=== PATIENT | female | born 1955 | race Caucasian/White ===

== ENCOUNTER → 2024-04-07 13:53 | Outpatient (REF) | payer MEDICARE, MEDICAID, SELFPAY ==
--- NOTE | 2024-04-07 14:00 | CA_ITS ---
Transthoracic Echocardiogram Patient (Last, First, Middle): Candelario Remy, Gender: Female Date of : 1955 Age: 68 Procedure Date: 04/07/2024 Procedure Type: Transthoracic Echocardiogram Location: OP Height: 162.56 cm Weight: 81.99 kg BSA: 1.87 m2 Heart Rate: 73 bpm BP: 138 / 70 mmHg Weight Clerk: CLARE Khan MD: Maribell PAVON Parking Lot Attendant: Richard Reid MD Symptoms: ATYPICAL CHEST PAIN, Study Quality: Adequate ECG Rhythm: Sinus, occasional arrhythmia Conclusions: - 1. Normal LV ejection fraction of 60-65% with grade 1 diastolic dysfunction 2. Cardiac valvular Dopplers within normal limits 3. Normal RV systolic pressure 4. No gross pericardial effusion Findings Left Ventricle Normal left ventricular size, thickness, and systolic function. The visually estimated ejection fraction is between 60-65%. Spectral Doppler is indicative of an impaired relaxation filling pattern. E/E prime ratio is <8, consistent with normal filling pressures. Right Ventricle Normal right ventricular cavity size and systolic function. Atria The left atrium is likely dilated. There is lipomatous hypertrophy of the interatrial septum. There is no evidence of interatrial shunt. The right atrium is normal in size. Aortic Valve Normal aortic valve structure and function. There is no aortic valve stenosis. There is no aortic valve regurgitation. Mitral Valve There is mild anterior and posterior mitral leaflet thickening. There is trace mitral valve regurgitation. There is no mitral valve stenosis. Pulmonic Valve The pulmonic valve was not well visualized. Tricuspid Valve Likely normal tricuspid valve structure and function. There is trace tricuspid valve regurgitation. The right ventricular systolic pressure is normal. The right ventricular systolic pressure is 22 mmHg. Normal right atrial pressure. There is no evidence of pulmonary hypertension. Great Vessels All visible segments of the aorta are normal in size. The pulmonary artery was not well visualized. There is no dilatation of the ascending aorta measuring 3.00 cm. Venous The inferior vena cava is normal in size and collapses greater than 50% with inspiration. Pericardium/Pleural There is no evidence of pericardial effusion. Prior Study Comparison No prior study available for comparison. Measurements 2D Linear Measurements IVSd: 1.02 0.6-0.9/0.6-1.0 cm LVIDd: 4.45 3.9-5.3/4.2-5.9 cm LVIDd Index: 2.38 2.4-3.2/2.2-3.1 cm/m2 LVIDs: 2.66 2.0-3.6 cm LVPWd: 0.99 0.7-1.1 cm LA Diam: 4.10 2.7-3.8/3.0-4.0 cm LAIDs Index: 2.19 1.5-2.3 cm/m2 LV Mass: 188.85 67-162/88-224 g LV Mass Index: 100.99 43-95/49-115 g/m2 LVOT Diam: 2.00 3.0+(-)1.3 cm 2D Systolic Function EF 4C: 61.50 >55% EF 2C: 62.20 >55% EF BiP: 61.10 >55% Mitral Valve MV Pk E: 0.77 MV PK A: 1.00 MV Decel Time: 199.00 E/A: 0.80 E'Lateral: 8.81 E'Medial: 7.18 E/E' Med: 10.70 E/E' Lat: 8.80 PHT: 58.00 MVA PHT: 3.79 Decel Dixie: 3.87 Aortic Valve AoV Pk Kb: 1.18 AoV Mn Kb: 0.84 AoV VTI: 0.28 AoV Pk Grad: 6.00 Aov Mn Grad: 3.00 ANGEL Cont.VTI: 2.42 LVOT LVOT Pk Kb: 1.00 LVOT Mn Kb: 0.63 LVOT VTI: 0.22 LVOT Pk Grad: 4.00 LVOT Mn Grad: 2.00 LVOT Diam: 2.00 LVOT Area: 3.14 Diastolic Function MV Pk E: 0.77 MV Pk A: 1.00 E/A: 0.80 E'Medial: 7.18 E/E' Med: 10.70 E' Laterial: 8.81 E/E' Lat: 8.80 Right Ventricle TAPSE (mm): 30.00 TVS' Kb: 15.30 Tricuspid Valve TR Pk Kb: 2.16 TR Pk Grad: 19.00 RA Press: 3.00 RVSP: 22.00 Great Vessels Aorta Sinus of Valsalva: 3.20 2.0-3.5 cm Ao Asc: 3.00 2.1-3.4 cm Ao Arch: 3.00 Pulmonary Valve PV Pk Kb: 0.92 Peak PV Grad: 3.00 Updated in Other Vendor System with Status of Final Richard Reid MD electronically signed on 04/08/2024 1:26:51 PM with status of Final
== END ==
LOC: HO.CARD 13:53
PROVIDERS: PCP Physician Assistant; Visit Provider Physician Assistant
DX: R07.89 Other chest pain (principal)
CPT/HCPCS: 93306

== ENCOUNTER → 2024-04-07 14:00 | Outpatient (BNV) | payer MEDICARE, MEDICAID, SELFPAY | PROVIDERS: PCP Physician Assistant; Visit Provider Internal Medicine Cardiovascular Disease | DX: I51.89 Other ill-defined heart diseases (principal); R07.9 Chest pain, unspecified | CPT/HCPCS: 93306 ==

== ENCOUNTER 2024-12-17 12:24 | Emergency (ER) | payer MEDICARE, MEDICAID, SELFPAY ==
[2024-12-17] VITALS (7 sets, daily range): BP systolic 142–187; BP diastolic 61–79; PULSE 59–71; RESP 16–18; TEMP 36.3–36.8; O2SAT 95–98; BMI 28.7
--- NOTE | ~2024-12-17 | US_ITS ---
CLINICAL HISTORY: leg pain Venous duplex ultrasound left lower extremity Comparison: None provided Findings: The visualized deep veins are fully compressible with normal Doppler color flow and spectral tracings. Superficial and varicose veins also present. IMPRESSION: 1. Negative for left lower extremity deep vein thrombosis. This document has been electronically signed by: Eladio Slaughter MD on 12/17/2024 19:05:09
--- NOTE | ~2024-12-17 | CT_ITS ---
EXAMINATION: CT HEAD WITHOUT CONTRAST CLINICAL INFORMATION: Hypertension and headache. COMPARISON: None available. TECHNIQUE: Contiguous axial imaging was performed from the skull base to vertex without intravenous administration of contrast. This CT examination was performed using dose optimization techniques as appropriate, variously including the following: *Automated exposure control *Adjustment of mA and/or kV according to patient size (this includes techniques or standardized protocols for targeted exams where dose is matched to indication/reason for exam; i.e. extremities or head) *Use of iterative reconstruction technique FINDINGS: There is no evidence of intracranial hemorrhage or extra-axial fluid collection. There is no mass effect, or edema. No CT evidence of acute territorial infarct. Ventricles, sulci, and cisterns are normal in size and configuration for patient age. No hydrocephalus. No midline shift. 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 Negative hyperdense MCA sign. Negative insular ribbon sign. No significant white matter attenuation abnormalities. Normal pituitary. Mild atheromatous calcification of the bilateral carotid siphons. There is ossification of the anterior falx in the midline. Globes and orbital contents image normally. No extracranial soft tissue abnormalities. The paranasal sinuses, mastoid air cells, and tympanic cavities are normally aerated. No suspicious bony abnormalities. There are no acute fractures evident. CT/CT head/brain wo IV con IMPRESSION: No acute intracranial abnormality. Electronically signed by: Reyes Crane MD 12/17/2024 01:21 PM EDT
--- NOTE | 2024-12-17 12:42 | ECG_ITS ---
Test Reason : HEADACHE/HTN Blood Pressure : */* mmHG Vent. Rate : 66 BPM Atrial Rate : 66 BPM P-R Int : 162 ms QRS Dur : 98 ms QT Int : 446 ms P-R-T Axes : 54 15 24 degrees QTcB Int : 467 ms Normal sinus rhythm with sinus arrhythmia Normal ECG No previous ECGs available Referred By: Nathan Roberts Electronically Signed By: LUIZ NUR
--- NOTE | 2024-12-17 12:43 | ED_ITS ---
HPI - General Adult General Chief complaint: Headache Stated complaint: High BP, headache Time Seen by Provider: 12/17/24 15:59 History of Present Illness HPI narrative: Patient is a 69-year-old female presents today with having headaches. The headache is frontal it has been ongoing since yesterday. Patient has a history of hypertension normally takes lisinopril. However she takes her lisinopril as needed some day she takes it is Saturday she does not. She checks home blood pressure if it is high she will take her medicine. In addition patient took her blood pressure today at home was 180/117. Patient elected to take her lisinopril also took her 's metoprolol. Continued to have the headache and then decided come to the ED. there is no focal deficit there is no change in vision. There is no focal weakness. Patient is from home. There is no fever no chills. There is no sudden deaths in her family. Related Data Allergies Allergy/AdvReac Type Severity Reaction Status Date / Time No Known Allergies Allergy Verified 12/17/24 12:41 Review of Systems 2 Review of Systems: Positive headache Yes all other systems are reviewed and are negative [facility] Past Medical History Attestation statement: The following information was validated with the patient. Social History Social History Smoked in Last 30 Days: No Use of substances other than those prescribed or required for medical reasons: No Advance Directives: No Advance Directives Information Provided: Yes Physical Exam ED Exam Exam: Appearance: Alert. Oriented X3. No acute distress. Eyes: Pupils equal, round and reactive to light. ENT: Pharynx normal. Neck: Normal inspection. Neck supple. No lymph nodes noted. No crepitus CVS: Normal heart rate and rhythm. Pulses normal. Normal S1 and S2 Respiratory: No respiratory distress. Breath sounds normal. No Wheezing. No rales Abdomen: Soft and nontender. No rigidity. No distention. good BS x4 Skin: Skin warm and dry. Normal skin color. Normal skin turgor. Extremities: No lower extremity edema. Neurovascular intact to all extremities. No Lacerations. No Rash Neuro: Oriented X 3. No motor deficit. No sensory deficit. Moving all extermities. No slurred speech Vital Signs: Vital Signs - 24 hr 12/17/24 12:37 12/17/24 14:30 12/17/24 17:03 Temperature 97.6 F 97.8 F 97.3 F Pulse Rate 71 67 59 Respiratory Rate 18 16 17 Blood Pressure 187/78 H 162/71 H 143/64 H Pulse Oximetry 98 95 97 Oxygen Delivery Method Room Air Room Air 12/17/24 18:14 12/17/24 20:09 12/17/24 20:34 Temperature 97.8 F 98.3 F 98.3 F Pulse Rate 67 67 67 Respiratory Rate 16 16 16 Blood Pressure 142/61 H 151/79 H 151/79 H Pulse Oximetry 98 96 96 Oxygen Delivery Method Room Air Room Air Room Air 12/17/24 20:41 Temperature 97.6 F Pulse Rate 63 Respiratory Rate 16 Blood Pressure 150/77 H Pulse Oximetry 95 Oxygen Delivery Method Room Air BMI result Body Mass Index 28.7 Course Course Course Narrative: RME: 69-year-old female history of high blood pressure presents to ED for hypertension with headache since last night. Patient denies any slurred speech, facial droop or paralysis of extremities. Labs EKG head CT scan ordered. Medications Administered Discontinued Medications Generic Name Dose Route Start Last Admin Trade Name Freq PRN Reason Stop Dose Admin Diphenhydramine HCl 25 mg 12/17/24 17:46 12/17/24 19:13 Diphenhydramine Hcl 50 Mg/Ml Vial IVPUSH 12/17/24 17:47 25 mg ONCE ONE Administration Ketorolac Tromethamine 15 mg 12/17/24 17:46 12/17/24 19:13 Ketorolac Tromethamine 15 Mg/Ml Vial IVPUSH 12/17/24 17:47 15 mg ONCE ONE Administration Metoclopramide HCl 10 mg 12/17/24 17:46 12/17/24 19:13 Metoclopramide Hcl 10 Mg/2 Ml Vial IVPUSH 12/17/24 17:47 10 mg ONCE ONE Administration Medical Decision Making Medical Decision Making MDM Narrative: Patient neurologically intact. I checked patient's intra-ocular pressure on the right side was 14.9 on the left side was 15. There is no signs of glaucoma. Patient's vision grossly was intact. On recheck the patient's blood pressure was about 170/90. No acute distress. My interpretation patient's CT head was grossly negative. Patient has no evidence of bleeding. Electrolytes are normal. We elected to order a CRP and sed rate to rule out the possibility of temporal arteritis. Currently in no distress. Elected to give patient migraine cocktail. Will monitor carefully. Sinus heart rate is 70 TN QRS QTC within normal limits is no acute ST segment elevation Patient's sed rate and CRP are negative. No evidence for temporal arteritis. CT scan of the head was grossly negative for bleed. History not consistent with meningitis. Had an elevated blood pressure at home of 180/117 but in the emergency department blood pressure has been fairly normal it was 130/70 in the last checked. Patient in no distress neurologically intact. No signs of a stroke no signs of a bleed. History not consistent with meningitis. Will discharge patient home. Close follow-up advised. Blood pressure recheck in 24- 48 hours. Headache improved with migraine treatment. Differential Diagnosis Differential Diagnoses: The differential diagnosis associated with the presentation includes Admission/Observation Consideration of admission/observation: Escalation of care including admission/observation considered Lab Data MDM Lab Attestation statement: I reviewed the patient's lab results. 12/17/24 13:04 12/17/24 13:04 Labs: Lab Results 12/17/24 Range/Units 13:04 WBC 5.1 (4.8-10.8) X10*3/uL RBC 4.85 (4.20-5.50) X10*6/uL Hgb 13.2 (12.0-16.0) g/dl Hct 38.1 (37.0-47.0) % MCV 78.6 L (80.0-98.0) fL MCH 27.2 (27.0-33.0) pg MCHC 34.6 (31.0-35.0) g/dl RDW 13.8 (11.0-16.0) % Plt Count 205 (160-400) X10*3/uL MPV 9.6 (9.4-12.3) fL Immature Gran % (Auto) 0.2 (0.0-0.4) % Neut % (Auto) 64.4 (45-73) % Lymph % (Auto) 28.5 (20-40) % [place] % (Auto) 5.3 (2-11) % Eos % (Auto) 1.0 (0-4) % Baso % (Auto) 0.6 (0-2) % Lymph # (Auto) 1.5 (1.2-4.9) X10*3/uL [place] # (Auto) 0.3 (0.1-1.2) X10*3/uL Eos # (Auto) 0.1 (0.0-0.4) X10*3/uL Baso # (Auto) 0.0 (0.0-0.2) X10*3/uL Abs Immat Gran (auto) 0.01 (0.00-0.03) X10*3/uL Absolute Neuts (auto) 3.3 (2.0-8.3) x10*3/uL Absolute Nucleated RBC 0.000 (0.0-0.012) X10*3/uL Nucleated RBC % (auto) 0.0 (0.0-0.2) /100WBC ESR 10 (0-20) MM/HR PT 10.5 L (10.9-12.4) SEC INR 0.9 (0.9-1.1) APTT 28.9 (26.7-34.1) SEC Sodium 142 (135-145) mmol/L Potassium 3.9 (3.3-5.1) mmol/L Chloride 108 (96-108) mmol/L Carbon Dioxide 28 (22-29) mmol/L Anion Gap 10 L (12-20) BUN 9 (9-16) mg/dL Creatinine 0.63 (0.5-1.4) mg/dL Estim Creat Clear Calc 87.6 Estimated GFR > 60 Random Glucose 102 (60-115) mg/dL Calcium 9.2 (8.4-10.2) mg/dL Total Bilirubin 1.2 H (0.0-1.0) mg/dL AST 28 (5-31) U/L ALT 28 (0-31) U/L Alkaline Phosphatase 96 (39-117) U/L Troponin I High Sens < 2.7 (<3.5-17.0) ng/L C-Reactive Protein 0.49 (< or = 0.50) mg/dL Total Protein 7.4 (6.5-8.0) g/dL Albumin 4.1 (3.5-5.0) g/dL Independent Interpretation I performed an independent interpretation of an: EKG (Sinus heart rate is 70 TN QRS QTC normal no acute ST segment elevation) and CT Scan (CT head negative for bleed) Radiology Impression Discussion of test interpretation with radiology: I have reviewed the radiologist's reading. Independent Historian Clinical information obtained from an independent historian. History obtained from or confirmed by: Other (Additional history obtained through patient's daughter) External Record Review External record reviewed: Inpatient record Discharge Plan Discharge Clinical Impression: Headache, Hypertension Patient Disposition: Home, Self-Care Instructions: Acute Headache (DC), Hypertension (ED) Additional Instructions: PLEASE GET YOUR BLOOD PRESSURE RECHECK IN ABOUT 24-48 HOURS Referrals: Maribell Self PA [Primary Care Provider, Internal Medicine] - 12/18/24 Interventions: ED Discharge Assessment Last Done: 12/17/24 20:41 Discharge Date/Time: 12/17/24 20:52 Print Language: Taiwanese
[2024-12-17 13:09] LABS: MANUAL DIFF FLAG NO
[2024-12-17 13:12] LABS: Hematocrit 38.1 % (37.0-47.0); Hemoglobin 13.2 g/dl (12.0-16.0); Imm Gran Abs Auto 0.01 X10*3/uL (0.00-0.03); Imm Gran Pct Auto 0.2 % (0.0-0.4); Lymphocytes Absolute Auto 1.5 X10*3/uL (1.2-4.9); Mean Corpuscular HGB Conc 34.6 g/dl (31.0-35.0); Mean Corpuscular Hemoglobin 27.2 pg (27.0-33.0); Mean Corpuscular Volume 78.6 fL (80.0-98.0); NRBC Abs Auto 0.000 X10*3/uL (0.0-0.012); NRBC Pct Auto 0.0 /100WBC (0.0-0.2); Platelet Count 205 X10*3/uL (160-400); Red Blood Count 4.85 X10*6/uL (4.20-5.50); White Blood Count 5.1 X10*3/uL (4.8-10.8)
[2024-12-17 13:28] LABS: Alanine Aminotransferase 28 U/L (0-31); Albumin Level 4.1 g/dL (3.5-5.0); Alkaline Phosphatase 96 U/L (39-117); Anion Gap 10 (12-20); Aspartate Amino Transferase 28 U/L (5-31); Blood Urea Nitrogen 9 mg/dL (9-16); Calcium 9.2 mg/dL (8.4-10.2); Carbon Dioxide 28 mmol/L (22-29); Chloride 108 mmol/L (96-108); Creatinine Clr Calc Pharmacy 87.6; Estimated Glomerular Filt Rate > 60; Potassium 3.9 mmol/L (3.3-5.1); Sodium 142 mmol/L (135-145); Total Protein 7.4 g/dL (6.5-8.0)
[2024-12-17 13:31] LABS: INTERNATIONAL NORM RATIO 0.9 (0.9-1.1); Prothrombin Time 10.5 SEC (10.9-12.4)
[2024-12-17 13:34] LABS: Partial Thromboplastin Time 28.9 SEC (26.7-34.1)
[2024-12-17 13:36] LABS: Troponin-I High Sensitivity < 2.7 ng/L (<3.5-17.0)
--- OUTSIDE RECORDS SUMMARY | 2024-12-17 16:25 | XMS_ITS | Encounter Summary ---
Author Organization [facility] Address [address] [place] [address] Phone Care Team Providers Care Radio Sales Account Executive Name Role Phone Maribell Self PA-C Primary Care Provider Cathy Hampton Unavailable [phone] Encounter Details Date Type Department Care Team (Late st Contact Info) Description 09/28/2016 Procedure Pass [facility] Endoscopy Department [address] [place] [id number] Social History Tobacco Use Types Packs/Day Years Used Date Smoking Tobacco: Never Alcohol Use Standard Drinks/Week Comments No 0 (1 standard drink = 0.6 oz pur e alcohol) Comments Unknown Sex and Gender Information Value Date Recorded Sex Assigned at Female 03/25/2017 9:37 AM EST Legal Sex Female 9:32 AM EST Gender Identity Not on file Sexual Orientation Not on file documented as of this encounter Plan of Treatment Not on file documented as of this encounter Visit Diagnoses Not on filedocumented in this encounter Care Teams Radio Sales Account Executive Relationship Specialty Start Date End Date Maribell Self PA-C [address] [place] [address] PCP - General Internal Medicine 05/08/16 Cathy Hampton PA [address] [place] [address] Gastroenterology 12/07/16 documented as of this encounter Additional Source Comments The information contained in this document represents components of the legal health record. It is not the complete legal health record.[facility]
--- OUTSIDE RECORDS SUMMARY | 2024-12-17 16:25 | XMS_ITS | Encounter Summary ---
Author Organization [facility] Address [address] [place] [address] Phone Care Team Providers Care Grocery Buyer Name Role Phone Maribell Self PA-C Primary Care Provider Cathy Hampton Unavailable [phone] Encounter Details Date Type Department Care Team (Late st Contact Info) Description 01/02/2017 Procedure Pass [facility] Periop [address] [place] [address] Social History Tobacco Use Types Packs/Day Years Used Date Smoking Tobacco: Never Smokeless Tobacco: Never Alcohol Use Standard Drinks/Week Comments [...] on filedocumented in this encounter Care Teams Grocery Buyer Relationship Specialty Start Date End Date Maribell Self PA-C [address] [place] [address] PCP - General Internal Medicine 05/08/16 Cathy Hampton PA [address] [place] [address] Gastroenterology 12/07/16 documented as of this encounter Additional Source Comments The information contained in this document represents components of the legal health record. It is not the complete legal health record.[facility]
--- OUTSIDE RECORDS SUMMARY | 2024-12-17 16:25 | XMS_ITS | Encounter Summary ---
Author Organization [facility] Address [address] [place] [address] Phone Care Team Providers Care Executive Business Coach Name Role Phone Maribell Self PA-C Primary Care Provider Cathy Hampton Unavailable Encounter Details Date Type Department Care Team (Late st Contact Info) Description 08/09/2016 Procedure Pass [facility] [address] [place] [address] Social History Tobacco Use Types Packs/Day Years [...] on filedocumented in this encounter Care Teams Executive Business Coach Relationship Specialty Start Date End Date Maribell Self PA-C [address] [place] [address] PCP - General Internal Medicine 05/08/16 Cathy Hampton PA [address] [place] [address] Gastroenterology 12/07/16 documented as of this encounter Additional Source Comments The information contained in this document represents components of the legal health record. It is not the complete legal health record.[facility]
--- OUTSIDE RECORDS SUMMARY | 2024-12-17 16:25 | XMS_ITS | Encounter Summary ---
Author Organization [facility] Address [address] [facility] [address] [place] [address] Phone Care Team Providers Care Ear Nose And Throat Specialist Name Role Phone Maribell Self PA-C Primary Care Provider Cathy Hampton PA Unavailable [phone] Encounter Details Date Type Department Care Team (Late st Contact Info) Description 03/20/2019 Procedure Pass [facility] Periop [address] [place] [address] Social History Tobacco Use Types Packs/Day Years [...] Diagnoses Not on filedocumented in this encounter Additional Health Concerns Assessment Noted Time PHQ-2 Depression Total Score: 0 02/06/20 19 10:40 AM EST documented as of this encounter Care Teams Ear Nose And Throat Specialist Relationship Specialty Start Date End Date Maribell Self PA-C [address] [place] [address] PCP - General Internal Medicine 05/08/16 Cathy Hampton PA [address] [place] [address] Gastroenterology 9/22/17 documented as of this encounter Additional Source Comments The information contained in this document represents components of the legal health record. It is not the complete legal health record.[facility]
--- OUTSIDE RECORDS SUMMARY | 2024-12-17 16:25 | XMS_ITS | Encounter Summary ---
Author Organization [facility] Address [address] [place] [address] Phone Care Team Providers Care Synchronizer Name Role Phone Maribell Self PA-C Primary Care Provider [phone] Cathy Hampton PA Unavailable [phone] Encounter Details Date Type Department Care Team (Late st Contact Info) Description 03/20/2019 Procedure Pass [facility] [address] [place] [address] Social History Tobacco Use Types Packs/Day Years [...] documented as of this encounter Care Teams Synchronizer Relationship Specialty Start Date End Date Maribell Self PA-C [address] [place] [address] PCP - General Internal Medicine 05/08/16 Cathy Hampton PA [address] [place] [address] Gastroenterology 12/07/16 documented as of this encounter Additional Source Comments The information contained in this document represents components of the legal health record. It is not the complete legal health record.[facility]
--- OUTSIDE RECORDS SUMMARY | 2024-12-17 16:25 | XMS_ITS | Encounter Summary ---
Author Organization [facility] Address [address] [place] [address] Phone Care Team Providers Care Sliver Machine Operator Name Role Phone Maribell Self PA-C Primary Care Provider Cathy Hampton Unavailable Encounter Details Date Type Department Care Team (Late st Contact Info) Description 07/17/2016 Procedure Pass [facility] [address] [place] [address] Social History Tobacco Use Types Packs/Day Years Used Date Smoking Tobacco: Never Assessed Comments Unknown Sex and Gender Information Value Date Recorded Sex Assigned at Female 03/25/2017 9:37 AM EST Legal Sex Female 9:32 AM EST Gender Identity Not on file Sexual Orientation Not on file documented as of this encounter Plan of Treatment Not on file documented as of this encounter Visit Diagnoses Not on filedocumented in this encounter Care Teams Sliver Machine Operator Relationship Specialty Start Date End Date Maribell Self PA-C [address] [place] [address] PCP - General Internal Medicine 05/08/16 Cathy Hampton PA [address] [place] [address] Gastroenterology 12/07/16 documented as of this encounter Additional Source Comments The information contained in this document represents components of the legal health record. It is not the complete legal health record.[facility]
--- OUTSIDE RECORDS SUMMARY | 2024-12-17 16:25 | XMS_ITS | Clinical Summary ---
Author Organization [facility] Address [address] [place] [address] Care Team Providers Care Demand Equipment Repairer Name Role Phone Maribell Self PA-C Primary Care Provider [phone] Source Comments PLEASE NOTE, if this patient is a minor, it may be UNLAWFUL to discuss sensitive information that is contained in these records (such as FAMILY PLANNING, MENTAL HEALTH or SUBSTANCE ABUSE) with the minor patient's parent or other person without the patient's specific authorization.[facility] Allergies No known active allergies Medications alum-mag hydroxide-simeth (MAALOX PLUS) 400-400-40 mg/5 mL suspensionIndicati ons:Achalasia Take 10 mL by mouth every 6 (six) hours as needed for indigestion 400 mL 1 01/14/20 20 Active ketoconazole (NIZORAL) 2 % shampooIndications :Tinea versicolor Apply topically once daily as needed for itching 120 mL 3 08/12/19 21 Active clobetasoL (TEMOVATE) 0.05 % ointmentIndication s:Atopic dermatitis, unspecified type Apply topically once daily 60 g 6 01/21/20 21 Active ondansetron HCL (ZOFRAN) 4 mg tabletIndications: Nausea Take 1 Tablet by mouth every 8 (eight) hours as needed for nausea 30 Tablet 1 01/21/20 21 Active CRANBERRY CONCENTRATE 500 mg capsuleIndications :Recurrent UTI TAKE 1 CAPSULE BY MOUTH EVERY DAY 90 Capsule 2 11/07/19 22 Active rosuvastatin (CRESTOR) 10 mg tabletIndications: Mild hyperlipidemia Take 1 Tablet by mouth nightly at bedtime 90 Tablet 3 03/30/19 25 Active aspirin [address] tabletIndications: Atypical chest pain Take 1 Tablet by mouth once daily 90 Tablet 2 03/30/19 25 Active lisinopriL 10 mg tabletIndications: Essential hypertension, benign Take 1 Tablet by mouth nightly at bedtime 90 Tablet 4 03/30/19 25 Active omeprazole (PRILOSEC) [address] capsuleIndications :Dyspepsia Take 1 Capsule by mouth every morning before breakfast 90 Capsule 4 04/21/19 25 Active Active Problems Problem Noted Date Diagnosed Date Essential hypertension, benign 01/31/2022 S/P Vaginal hysterectomy, ro botic right salpingo-oophorectomy, robotic sacral colpopexy, midurethral sling Obtryx Halo II technique, cystoscopy 08/202109/01/2021 Overview (09/01/2021): SERVICE DATE:09/01/2021 REASON FOR VISIT: Postoperative Visit SURGICAL PROCEDURE:08/17/2021 PREOPERATIVE DIAGNOSES: Stage IV uterovaginal prolapse, stress urinary incontinence. POSTOPERATIVE DIAGNOSES: same, pelvic adhesions, fibroid uterus PROCEDURES: Vaginal hysterectomy, robotic right salpingo-oophorectomy, robotic sacral colpopexy, midurethral sling Obtryx Halo II technique, cystoscopy History of COVID-19 03/202105/05/2021 Mild hyperlipidemia 04/19/2020 Non morbid obesity 04/18/2018 Primary osteoarthritis involving multiple joints 03/04/2017 Achalasia s/p myotomy 01/02/2017 10/07/2016 Overview (03/04/2017): Candelario Remy 1955 [id number] DATE OF SERVICE: 02/14/2017 HISTORY: Candelario Remy is a 61 y.o. female who returns to clinic after having undergone a Peroral endoscopic myotomy for Achalasia on 01/02/17. By way of review, The patient of Ms. Maribell Self PA-C. She has a history of gallstones with H. pylori as well as chest pain. She has had a history of dysphagia to solids as well as postprandial chest pain for the prior 2 years that had progressed over the prior 6 months. She was seen by her PCP back in May of 2016 and tested positive for H. pylori breath test. She underwent treatment with initial improvement, but her symptoms persisted and returned within 3 weeks. She was referred to Dr. Nolasco endoscopy on August 09, 2016. Gastric biopsies demonstrated chronic active gastritis as well some intestinal metaplasia, but H. pylori was negative. She was prescribed Nexium 20 mg b.i.d. for 6-week course, but she continued to have dysphagia worse with solids and felt like food was getting stuck. She was sometimes able to relieve the pressure by drinking fluids, eating small meals and chewing carefully. She did undergo a manometry study by Dr. Joy on October 04, 2016. There was no peristaltic contractions seen with swallows and no transit of food. They were unable to pass the catheter past the lower esophageal sphincter and was suspicious for a distal obstruction such as achalasia. She also had a barium swallow study that demonstrated diffusely dilated esophagus with a beak like narrowing at the distal end. There was persistent holdup of contrast in the esophagus after 5 minutes consistent with achalasia. She did note that small of food does got stuck and she had to drink a lot to get it through. Over the prior 6 months, she had lost about 3 kilograms. At night she felt like she regurgitated but denied any cough symptoms of breathing. Given the achalasia appearance and symtpoms, we elected to proceed with a myotomy. She underwent surgery on 01/02/17, had an uncomplicated postoperative course, and discharged home on 01/03/17. Today she returns for follow up. She returns today in very good spirits. She is feeling well. She says she is eating much better than she did preoperatively. She is able to eat regular food and it goes down well. She really has no problems. She is thrilled. ROS: Comprehensive review of systems was performed and is negative except for the above mentioned in HPI. PROCEDURE: Peroral endoscopic myotomy, EGD. 01/02/2017 Physical examination reveals a well-appearing female in no acute distress. Alert and oriented x 3 with a baseline gait. The skin is without rashes, lesions, or ulcers. The nasal mucosa is pink. Teeth, gums, and oropharynx are normal. she is without thyromegaly, masses, or JVD. There is no palpable cervical, supraclavicular, or axillary adenopathy. Cardiac examination reveals regular rate and rhythm, with S1 and S2 within normal limits. her chest is clear to auscultation and percussion, with good excursion and no change in tactile fremitus or egophony between the two hemithoraces. her abdomen is soft, non-tender, non-distendedexam wihtout hepatosplenomegaly or masses. There is no ulceration, peripheral clubbing, cyanosis, or edema. The neurological exam is unremarkable with good muscle strength throughout. RADIOLOGY: CXR PA and lateral chest examination there is straight stable mediastinal and cardiac contours. The lungs are well expanded and clear bilaterally. There are no pleural effusions or pneumothorax. ASSESSMENT AND PLAN: Ms. Candelario Remy is recovering well after her surgery. She feels very well. She is eating much better and is overall quite happy. For now we'll plan to see her back in a year with a repeat barium swallow study. Certainly if she has any new concerns prior to that time, she is welcome to call me but overall she seems have had a very good result. She and her daughter were very both happy and will call if they have any further concerns. Thank you for allowing me to participate in the care of this patient. Please feel free to call me at [phone] or email me at if you have any questions. Please let me know if there is anything I can do for you. ? Sincerely, ??? Demario Vazquez MD Load Planner, Esophageal Surgery Co-Director of Minimally Invasive Thoracic Surgery Director of Robotics in Thoracic Surgery Division of Thoracic Surgery [facility] [address] [address] (o) [phone] (f) [phone] [facility] [phone] H. pylori infection 05/201605/24/2016 Multiple thyroid nodules 01/31/2015 Overview (02/22/2015): Result type: US Soft Tissue Head/Neck Result date: 22 February 2015 11:35 Result status: Auth (Verified) Result title: US Soft Tissue Head/Neck Performed by: Geraldine Villagomez MD on 22 February 2015 19:09 Verified by: Nawaf Sandoval MD on 22 February 2015 19:12 Encounter info: [id number], [facility] [place], 02/22/[place] - * Final Report * Reason For Exam multiple thyroid nodules RESULT: US Soft Tissue Head/Neck US Soft Tissue Head/Neck INDICATION: History of thyroid nodules. Thyroid ultrasound performed previously in [place]. COMPARISON: There are no pertinent prior images available for comparison at this facility. FINDINGS: Right thyroid lobe: * Normal homogeneous echotexture and vascularity. * The right thyroid lobe measures approximately 4.9 x 1.9 x 2.2 cm, volume 10.7 cc. * No thyroid nodule, abnormal calcification or cystic spaces noted within the right thyroid lobe. Left thyroid lobe: * Normal homogeneous echotexture and vascularity. * The left thyroid lobe measures approximately 4.9 x 1.8 x 2.1 cm, volume 9.7 cc. * 3 mm, hypoechoic nodules seen in the mid to upper pole the left thyroid lobe. * A slightly complex, predominantly solid isoechoic nodule with interspersed cystic spaces, is seen in the inferior pole of the left thyroid lobe. This nodule measures approximately 1.0 x 0.6 x 0.9 cm. There are no associated calcifications present. No internal flow seen by color Doppler assessment. Isthmus thickness: 0.3, which is within normal limits. However, there is mild asymmetric thickening of the isthmus to the left of midline. IMPRESSION: Mild diffuse thyromegaly. 1.0 cm nodule in the inferior left thyroid lobe without associated aggressive characteristics. I have personally reviewed the images and I agree with this report. Signature Line Dictated By: Geraldine Villagomez MD Dictated Date/Time: 02/22/15 1:17 pm Reviewed By: Nawaf Sandoval MD Signed By: Nawaf Sandoval MD Signed Date/Time: 02/22/15 7:12 pm Transcribed By: KAREN Transcribed Date/Time: 02/22/15 7:09 pm US Soft Tissue Head/Neck This document has an image U/S 10/[address] [facility] Presbyesophagus on Upper GI series 07/2013 S/P dg 01/31/2015 Resolved Problems Problem Noted Date Diagnosed Date Resolved Date Endometrial thickening on ultrasound 03/22/2016 09/01/2021 Overview (03/27/2016): Result type: US Pelvic Non-Ob Comp Result date: March 16, 2016 11:25 Result status: Auth (Verified) Result title: US Pelvic Non-Ob Comp Performed by: Filiberto Cardoza MD on March 16, 2016 12:38 Verified by: Nawaf Sandoval MD on March 16, 2016 12:43 Encounter info: [id number], [facility] [place] [facility] [place] [facility], 03/16/2016 - 03/16/2016 * Final Report * Reason For Exam ENDOMETRIAL POLYP RESULT: US Pelvic Non-Ob Comp US Pelvic Non-Ob Comp, US Transvaginal Non-ob INDICATION: 60 year old postmenopausal woman with reported history of endometrial polyps. LMP 12 years ago. No bleeding. COMPARISON: No priors at this facility TECHNIQUE: Transabdominal and transvaginal pelvic ultrasound was performed. Grayscale, color Doppler images were obtained. FINDINGS: Uterus: The uterus was poorly seen transabdominally. Transvaginal examination was also somewhat limited due to uterine position. Uterine dimensions were estimated, as follows: width, 3.1 cm; anteroposterior, 3.5 cm; length, 5.2 cm. An exophytic right fibroid was questioned with maximum dimension 3.4 cm. Endometrium: Limited visualization with double layer thickness measuring up to 1.2 cm. Mild heterogeneity without sonographically apparent discrete polyp or mass. No internal vascularity demonstrated on color and spectral Doppler examinations. Right ovary: The right ovary measures 1.4 x 1.4 x 2.6 cm (volume 3 ml). There are 2 small cysts with the largest approximately 1 cm. Left ovary: Nonvisualized. No left adnexal mass identified. Free fluid: No free pelvic fluid. IMPRESSION: 1. Heterogeneous and thickened endometrium measuring up to 1.2 cm without evidence of discrete polyp or mass. Differential includes endometrial hyperplasia, polyp and malignancy. Recommend gynecological consultation. 2. Exophytic uterine fibroid, 3.4 cm. I have personally reviewed the images and I agree with this report. WSN: [id number] Signature Line Dictated By: Filiberto Cardoza MD Dictated Date/Time: 03/16/16 12:38 p Reviewed By: Nawaf Sandoval MD Signed By: Nawaf Sandoval MD Signed Date/Time: 03/16/16 12:43 pm Transcribed By: KAREN Transcribed Date/Time: 03/16/16 12:38 pm US Pelvic No This document has an image Immunizations Immunization Administration Dates Next Due Flu, Adjuvant, 65y+ (Fluad) 01/03/2020 Flu, Cell Culture based, Pre servative Free, 6m+, Flucelvax 01/13/2018 Flu, High Dose, 65y+, Fluzone High Dose 12/19/19 Influenza (FLUZONE), high-dose, trivalent, PF ,12/27/2018 PFIZER COVID VACCINE, PURPLE CAP, 12+ 12/28/2020 ,12/07/2020 PNEUMOCOCCAL CONJUGATE PCV 20 (Prevnar 20) 05/21 Social History Tobacco Use Types Packs/Day Years Used Date Smoking Tobacco: Never Smokeless Tobacco: Never Tobacco Cessation:Counseling Given: Not Answered Alcohol Use Standard Drinks/Week Comments No 0 (1 standard drink = 0.6 oz pur e alcohol) Social Connections Answer Date Recorded How often do you feel lonely or isolated from th ose around you? 1 03/30/2024 Financial Resource Strain Answer Date R ecorded Hard to pay for: Food 1 03/30/2024 Stress Answer Date Recorded Do you feel these kinds of stress these days? 1 03/30/2024 Physical Activity Answer Date Recorded Physical Activity 0 11/09/2018 Food Insecurity Answer Date Recorded Hard to pay for: Food 1 03/30/2024 Transportation Needs Answer Date Record ed Hard to pay for: Transportation 1 03/30/2024 Housing Stability Answer Date Recorded Hard to pay for: Rent/Mortgage payment 1 03/30/2024 Safety and Environment Answer Date Filiberto rded Safety 0 09/04/2022 Utilities Answer Date Recorded Hard to pay for: Utilities 1 03/30 Employment Answer Date Recorded Stress 0 09/04/2022 Comments No Sex and Gender Information Value Date Recorded Sex Assigned at Female 03/06/2017 6:04 PM PST Legal Sex Female 7:20 AM PDT Gender Identity Female 03/06/2017 6:04 PM PST Sexual Orientation Straight 03/06/2017 6: 04 PM PST Last Filed Vital Signs Vital Sign Reading Time Taken Comments Blood Pressure 131/78 04/13/2024 3:43 PM EST Pulse 76 04/13/2024 3:43 PM EST Temperature 36.5 C (97.7 F) 01/14/2024 1:10 PM EDT Respiratory Rate 16 01/14/2024 1:10 PM EDT Oxygen Saturation 98% 01/14/2024 1:10 PM EDT Inhaled Oxygen Concentration - - Weight 83.9 kg (185 lb) 01/14/2024 1:10 PM EDT Height 162.6 cm (5' 4 ) 01/14/2024 1:10 PM EDT Body Mass Index 31.76 01/14/2024 1:10 PM EDT Plan of Treatment Upcoming Encounters Date Type Department Care Team (Late st Contact Info) Description 04/01/2025 1:40 PM EST Office Visit [facility] [address] [place] [address] Rubin Todd [address] [place] [address] Health Maintenance Due Date Last Done Comments Medicare Annual Wellness Visit 10/09/1971 CT Colonography 1998 FIT/gFOBT 1998 Fecal DNA 1998 Flexible Sigmoidoscopy 1998 Imm-Zoster, Recombinant (1 of 2) 10/09/2003 Bone Density Screening 2018 Falls Prevention 2018 Breast Cancer Screening (Mammogram) 05/10/2023 05/10/2021, 09/28/2020, 09/22/2020 Diabetes Screening 09/10/2024 09/11/2023, 0 09/04/2022, 09/04/2022, Additional history exists Dental BW 2024 10/07/2023, 03/28/2023 [id number] ( season) 2024 021, 12/07/2020 Dental Examination 04/15/2025 04/13/2024, 0 10/07/2023, 03/28/2023 Dental Perio Charting 04/15/2025 04/13/2024, 024 Dental Prophy 04/15/2025 04/13/2024, 09/16, 04/16/2023 Tobacco Screening 04/21/2025 04/21/2024 Colonoscopy 03/04/2027 03/04/2017 Colorectal Cancer Screening 03/04/2027 Dental FMX/Pano 03/30/2028 03/28/2023 Hepatitis C Screening Completed 01/20/2021 Imm-Pneumococcal 50+ Completed 05/21/2022 Lipid Screening Discontinued 09/11/2023, 08/17, 01/31/2022, Additional history exists Imm-Influenza Discontinued 12/07/2023, 05/2021, 01/03/2020, Additional history exists Alcohol and Drug Screen Completed 03/30/19, 09/11/2023, 09/04/2022, Additional history exists Depression Annual Screen Completed 03/30/2024, 01/16 Imm-DTaP/Tdap/Td Discontinued Procedures Procedure Name Priority Date/Time Associated Diagnosis Comments COMP PERIODONTAL EVALUATION - NEW/EST PATIENT Routine 04/13/2024 3:40 PM EST [facility] Encounter for dental examination PROPHYLAXIS - ADULT Routine 04/13/2024 3 :40 PM EST [facility] Encounter for dental examination PERIODIC ORAL EVALUATION ESTABLISHED PATIENT Routine 04/13/2024 3:40 PM EST [facility] Encounter for dental examination BITEWINGS - TWO RADIOGRAPHIC IMAGES Routine 10/07/2023 3:40 PM EDT Encounter for dental examination COMPREHENSIVE METABOLIC PANEL Routine 09/11/2023 1:26 PM EDT Routine general medical examination at a health care facility Essential hypertension, benign Mild hyperlipidemia Non morbid obesity Multiple thyroid nodules New onset headache Lower urinary tract symptoms (LUTS) LIPID PANEL Routine 09/11/2023 1:26 PM EDT Routine general medical examination at a health care facility Essential hypertension, benign Mild hyperlipidemia Non morbid obesity Multiple thyroid nodules New onset headache Lower urinary tract symptoms (LUTS) INTRAORAL - COMP SERIES OF RADIOGRAPHIC IMAGES Routine 03/28/2023 2:20 PM EST [facility] HISTORIC MAMMOGRAM 05/10/2021 3: 00 AM EST HEPATITIS C AB W/RFLX HCV RNA, QT, RT PCR Routine 01/20/2021 2:32 PM EDT Nausea Primary osteoarthritis involving multiple joints Multiple thyroid nodules Presbyesophagus on Upper GI series 07/2013 Non morbid obesity Mild hyperlipidemia COLONOSCOPY Routine 03/04/2017 2:36 PM EST from Last 3 Months or Most Recently Relevant to Health Maintenance Results * (ABNORMAL) LIPID PANEL (09/11/2023 1:26 PM EDT) CHOLESTEROL, TOTAL 232(H) <200 mg/dL [facility] HDL CHOLESTEROL 55 > OR = 50 mg/dL [facility] TRIGLYCERIDES 157(H) <150 mg/dL [facility] LDL-CHOLESTEROL 148(H) 99 mg/dL (calc) [facility] Comment: Reference range: <100 Desirable range <100 mg/dL for primary prevention; <70 mg/dL for patients with CHD or diabetic patients with > or = 2 CHD risk factors. LDL-C is now calculated using the Jasmin calculation, which is a validated novel method providing better accuracy than the Friedewald equation in the estimation of LDL-C. Kahlil SS et al. ABDIRASHID. 2013;310(19): 1343-0118 (http://education.Choister/faq/KEV112) CHOL/HDLC RATIO 4.2 <5.0 (calc) [facility] NON-HDL CHOLESTEROL 177(H) <130 mg/dL (calc) [facility] Comment: For patients with diabetes plus 1 major ASCVD risk factor, treating to a non-HDL-C goal of <100 mg/dL (LDL-C of <70 mg/dL) is considered a therapeutic option. Blood Blood / Unknown 09/11/2023 1 :26 PM EDT 09/11/2023 1:27 PM EDT Narrative [facility] - 09/13/2023 1:09 AM EDT PATIENT UNABLE TO VOID; ADVISED TO RETURN FOR COLLECTION. us Maribell Self PA-C LAB - BLOOD DRAW Final Resul t [facility] [address] [place] [address], [facility] [address] [place] [phone] * COMPREHENSIVE METABOLIC PANEL (09/11/2023 1:26 PM EDT) GLUCOSE 91 65 - 99 mg/dL [facility] Comment: Fasting reference interval UREA NITROGEN (BUN) 18 7 - 25 mg/dL [facility] CREATININE (blood) 0.73 0.50 - 1.05 mg/dL [facility] EGFR 89 > OR = 60 mL/min/1. 73m2 [facility] BUN/CREATININE RATIO SEE NOTE: [facility] Comment: Not Reported: BUN and Creatinine are within reference range. SODIUM 139 135 - 146 mmol/L [facility] POTASSIUM 4.3 3.5 - 5.3 mmol/L [facility] CHLORIDE 105 98 - 110 mmol/L [facility] CARBON DIOXIDE 25 20 - 32 mmol/L [facility] CALCIUM 9.1 8.6 - 10.4 mg/dL [facility] PROTEIN, TOTAL 6.7 6.1 - 8.1 g/dL [facility] ALBUMIN 3.9 3.6 - 5.1 g/dL [facility] GLOBULIN 2.8 1.9 - 3.7 g/dL (calc) [facility] ALBUMIN/GLOBULI N RATIO 1.4 1.0 - 2.5 (calc) [facility] BILIRUBIN, TOTAL 0.8 0.2 - 1.2 mg/dL [facility] ALKALINE PHOSPHATASE 74 37 - 153 U/L [facility] AST 19 10 - 35 U/L [facility] ALT 16 6 - 29 U/L [facility] Blood Blood / Unknown 09/11/2023 1 :26 PM EDT 09/11/2023 1:27 PM EDT Narrative [facility] - 09/13/2023 1:09 AM EDT PATIENT UNABLE TO VOID; ADVISED TO RETURN FOR COLLECTION. us Maribell Self PA-C LAB - BLOOD DRAW Edited Resu lt - Final [facility] [address] [address], [facility] [address] [phone] * HISTORIC MAMMOGRAM (05/10/2021 3:00 AM EST) 05/10/2021 3:00 AM EST Maribell Self PA-C IMG MAMMO Final Result * HEPATITIS C AB W/RFLX HCV RNA, QT, RT PCR (01/20/2021 2:32 PM EDT) HEPATITIS C ANTIBODY NON-REACT YORDAN NON-REACT YORDAN [facility] SIGNAL TO CUT-OFF 0.02 <1.00 [facility] Comment: HCV antibody was non-reactive. There is no laboratory evidence of HCV infection. In most cases, no further action is required. However, if recent HCV exposure is suspected, a test for HCV RNA (test code 91028) is suggested. For additional information please refer to http://education.JoinMe@/faq/RQR93w9 (This link is being provided for informational/ educational purposes only.) Blood Blood / Unknown 01/20/2021 2 :32 PM EDT 01/20/2021 2:32 PM EDT Maribell Self PA-C LAB - BLOOD DRAW Edited Resu lt - Final [facility] [address] [id number], [facility] [address] [address] * COLONOSCOPY (03/04/2017 2:36 PM EST) Impressions Maribell Self PA-C - 03/04/2017 2:36 PM EST Gastroenterology Patient Name: Candelario Remy Procedure Date: 08/09/2016 10:37 AM Date of : 1955 Age: 60 Room: 01 Gender: Female Note Status: Finalized Attending MD: MAKSIM NOLASCO MD Procedure: Colonoscopy Indications: Screening for colorectal malignant neoplasm Providers: MAKSIM NOLASCO MD, Alan Galloway RN Referring MD: Cathy Hampton (Referring ) Medicines: Midazolam 3 mg IV, Fentanyl 75 micrograms IV Complications: No immediate complications. Procedure: Pre-Anesthesia Assessment: - All questions were answered and informed consent was obtained. - ASA Grade Assessment: I - A normal, healthy patient. - Airway Examination: Mallampati Class I (tonsillar pillars visualized). After informed consent was obtained, the scope was passed under direct vision. Throughout the procedure, the patient's blood pressure, pulse, and oxygen saturations were monitored continuously. The Colonoscope was introduced through the anus and advanced to the cecum, identified by appendiceal orifice and ileocecal valve. Findings: The entire examined colon appeared normal. Impression: - The entire examined colon is normal. - No specimens collected. Moderate Sedation: Moderate (conscious) sedation was personally administered by the endoscopist. The following parameters were monitored: oxygen saturation, heart rate, blood pressure, respiratory rate, EKG, adequacy of pulmonary ventilation, and response to care. Total physician intraservice time was 28 minutes. Recommendation: - Repeat colonoscopy in 10 years for screening purposes. unless family hx of colon cancer or polyps MD MAKSIM Kovacs MD 08/09/2016 11:23:40 AM This report has been signed electronically. Number of Addenda: 0 Note Initiated On: 08/09/2016 10:37 AM Maribell Self PA-C PROCEDURES Final Result from Last 3 Months or Most Recently Relevant to Health Maintenance [place] FORMERLY [facility], [facility] Care Teams Demand Equipment Repairer Relationship Specialty Start Date End Date Maribell Self PA-C [address] [place] [phone] PCP - General Internal Medicine 01/28/15
--- OUTSIDE RECORDS SUMMARY | 2024-12-17 16:25 | XMS_ITS | Clinical Summary ---
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 Name Role Phone Maribell Self PA-C Primary Care Provider Cathy Hampton Unavailable [phone] Allergies No known active allergies Medications No known medications Active Problems Problem Noted Date Diagnosed Date Achalasia 12/14/2016 Family History Medical History Relation Comments Colon cancer Maternal Aunt Relation Status Comments Maternal Aunt Social History Tobacco Use Types Packs/Day Years Used Date Smoking Tobacco: Never Smokeless Tobacco: Never Alcohol Use Standard Drinks/Week Comments No 0 (1 standard drink = 0.6 oz pur e alcohol) Education Answer Date Recorded Are you interested in more education? Not on valencia e 07/13/2022 Are you concerned about learning? Not on file 07/13/2022 No 07/13/2022 No 07/13/2022 Digital Access Answer Date Recorded No 08/13/2022 No 08/13/2022 No 08/13/2022 Reliable internet access at home? Not on file 08/13/2022 Device with a working camera? Not on file Comments Unknown Sex and Gender Information Value Date Recorded Sex Assigned at Female 03/25/2017 9:37 AM EST Legal Sex Female 9:32 AM EST Gender Identity Not on file Sexual Orientation Not on file Last Filed Vital Signs Vital Sign Reading Time Taken Comments Blood Pressure 145/71 03/26/2019 11:18 AM EST Pulse 72 03/26/2019 11:18 AM EST Temperature 36.3 C (97.4 F) 03/26/2019 11:18 AM EST Respiratory Rate 20 03/20/2019 3:20 PM EST Oxygen Saturation 97% 03/26/2019 11:18 AM EST Inhaled Oxygen Concentration 30% 01/02/2017 2 :15 PM EDT Weight 78.9 kg (174 lb) 03/26/2019 11:18 AM EST Height 162.6 cm (5' 4 ) 03/26/2019 11:18 AM EST Body Mass Index 29.87 03/26/2019 11:18 AM EST Plan of Treatment Health Maintenance Due Date Last Done Comments Adult Td,Tdap Booster 1955 HEPATITIS C SCREENING 10/09/1971 MAMMOGRAM 1993 COLOGUARD 1998 FIT TEST 1998 FOBT 1998 SIGMOIDOSCOPY 1998 VIRTUAL COLONOSCOPY 1998 PNEUMOCOCCAL VACCINES (50+ years) (1 of 1 - PCV) 10/09/2003 ZOSTER VACCINES (1 of 2) 10/09/2003 OSTEOPOROSIS SCREENING INITI AL (ONE-TIME) 2018 DEPRESSION SCREENING 02/06/2020 02/05/2019 LIPID PANEL 03/06/2024 03/06/2019 INFLUENZA VACCINE (#1) 2024 01/13/2018 COVID-19 VACCINE (3 - 2024-2 6 season) 2024 12/28/2020, 12/07/2020 COLONOSCOPY 08/09/2026 08/09/2016 COLORECTAL CANCER SCREENING 08/09/2026 RSV VACCINE (1 - 1-dose 75+ series) 2028 SMOKING STATUS SCREENING (On ce After 26 Yrs) Completed 02/05/2019 HEPATITIS A VACCINES Aged Out No long er eligible based on patient's age to complete this topic HIB VACCINES Aged Out No longer eligi ble based on patient's age to complete this topic MENINGOCOCCAL VACCINES (ACWY) Aged Out No longer eligible based on patient's age to complete this topic MENINGOCOCCAL VACCINES (B) Aged Out N o longer eligible based on patient's age to complete this topic Medical Devices Not on file Procedures Procedure Name Priority Date/Time Associated Diagnosis Comments ENDOSCOPY, COLON 08/09/2016 10:3 7 AM EDT from Last 3 Months or Most Recently Relevant to Health Maintenance Results * ENDOSCOPY, COLON (08/09/2016 10:37 AM EDT) 08/09/2016 10:3 7 AM EDT Narrative Transcriptions Maksim Nolasco MD, MPH - 08/09/2016 10:37 AM EDT 850 Gastroenterology Patient Name: Candelario Remy Procedure Date: 08/09/2016 10:37 AM Date of : 1955 Age: 60 Room: 01 Gender: Female Note Status: Finalized Attending MD: MAKSIM NOLASCO MD Procedure: Colonoscopy Indications: Screening for colorectal malignant neoplasm Providers: MAKSIM NOLASCO MD, Alan Galloway RN Referring MD: Cathy Hampton (Referring MD) Medicines: Midazolam 3 mg IV, Fentanyl 75 [...] 0 Note Initiated On: 08/09/2016 10:37 AM Cathy PAVON GI PROCEDURE ORDERABLES F inal Result from Last 3 Months or Most Recently Relevant to Health Maintenance Insurance MEDICARE PART A & B [place] [facility] [place] [id number] MEDICARE PART A & B [facility] [place] [id number] [facility] [place] [id number] MEDICARE PART A & B [place] [facility] [place] [facility] [place] [id number] [facility]IC[facility] PART [facility] [place] [id number] [facility] [place] [id number] MEDICARE PART A & B [place] [id number] [facility] LIMITED MEDICARE PART A & [facility] [place] [id number] [employer] LIMITED MEDICARE PART A & B [facility] [place] [phone] Advance Directives For more information, please contact: [phone] (9AM - 5PM Laura/[facility], Saturday-Saturday) Documents on File Type Date Recorded 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 Expl cassandra Healthcare Proxy 01/02/2017 7:51 AM * Full Code (Presumed) (Latest Code Status on File) Date Activated Date Inactivated Comments 01/02/2017 5:07 PM 01/03/2017 6:04 PM Healthcare Agents on File Name Relationship Healthcare Agent Relationshi p Communication Fabio Remy Son .Primary Health Care Agent (Proxy form on file) Care Teams Cheese Processor Relationship Specialty Start Date End Date Maribell Self PA-C [address] [place] [address] PCP - General Internal Medicine 05/08/16 Cathy Hampton PA [address] [place] [address] Gastroenterology 12/07/16 Additional Source Comments The information contained in this document represents components of the legal health record. It is not the complete legal health record.[facility]
== END 2024-12-17 20:52 | disposition home or self-care (01) ==
PROVIDERS: Physician Assistant; Emergency Provider Emergency Medicine Emergency Medical Services; PCP Physician Assistant
DX: R51.9 Headache, unspecified (principal); I10 Essential (primary) hypertension; Z79.899 Other long term (current) drug therapy
CPT/HCPCS: 36415; 70450; 80053; 84484; 85025; 85610; 85652; 85730; 86140; 93005; 93971; 96374; 96375; 99284; J1200; J1885; J2765

== ENCOUNTER → 2024-12-17 12:42 | Outpatient (BNV) | payer MEDICARE, MEDICAID, SELFPAY | PROVIDERS: Emergency Provider Emergency Medicine Emergency Medical Services; PCP Physician Assistant; Visit Provider Internal Medicine | DX: I10 Essential (primary) hypertension (principal); R51.9 Headache, unspecified | CPT/HCPCS: 93010 ==

== ENCOUNTER → 2024-12-17 12:43 | Outpatient (BNV) | payer MEDICARE, MEDICAID, SELFPAY | PROVIDERS: PCP Physician Assistant; Visit Provider Radiology Diagnostic Radiology | DX: R51.9 Headache, unspecified (principal); I10 Essential (primary) hypertension | CPT/HCPCS: 70450 ==